=== PATIENT | male | born 2000 | race Caucasian/White ===

== ENCOUNTER 2021-09-16 16:00 | Emergency (ER) | payer OTHER ==
[~2021-09-16] VITALS: Ht 167.6 cm; Wt 51.7 kg
[2021-09-16 16:14] VITALS: BP 96/44
--- NOTE | 2021-09-16 16:26 | NUR ---
21 Y/O M BIB SELF C/O OF ABDOMINAL PAIN, NAUSEA/VOMITING 10/10 FOR 4DAYS. STATES THAT IT "FEELS LIKE AN ULCER". PT ALSO STATES THE BOTTOM OF HIS FEET FEELS LIKE PINS AND NEDDLES. PT TOOK TYLENOL AND MOTRIN TODAY. WITH NO RELEAVE. [facility] PMH: GASTRIC ULCER HX
--- NOTE | 2021-09-16 16:45 | NUR ---
DR MACK AT BEDSIDE.
[2021-09-16] MEDS ORDERED: METOCLOPRAMIDE 10 MG/2 ML INJ VIAL IVP ONE (16:50)
[2021-09-16] MEDS ORDERED: KETOROLAC 15 MG/ML VIAL IVP ONE (16:50)
[2021-09-16] MEDS ORDERED: NACL 0.9% 1,000 ML IV ONE (16:50)
[2021-09-16] MEDS ORDERED: diphenhydrAMINE 50 MG/ML VIAL IVP ONE (16:50)
--- NOTE | 2021-09-16 17:04 | NUR ---
[facility] AT BEDSIDE.
[2021-09-16 17:13] LABS: HEMOGLOBIN 14.5 g/dL (12.0-18.0); LYMPHOCYTES # (AUTO) 0.6 K/uL (2.0-11.5); MONOCYTES # (AUTO) 0.3 K/uL (0.8-1.0); NEUTROPHILS # (AUTO) 0.8 K/uL (1.8-7.7); NEUTROPHILS % (AUTO) 46.6 % (42.2-75.2); RED CELL DISTRIBUTION WIDTH 13.2 % (11.6-13.7)
[2021-09-16] MEDS ORDERED: HALOPERIDOL IM 5 MG/ML VIAL IM ONE (17:30)
[2021-09-16 17:33] LABS: ALBUMIN 3.7 g/dL (3.4-5.0); ANION GAP 11.8 (8-16); CARBON DIOXIDE 25.9 mmol/L (21-32); CREATININE 1.1 mg/dL (0.6-1.3); POTASSIUM 3.7 mmol/L (3.5-5.1); TOTAL BILIRUBIN 0.5 mg/dL (0.0-1.0)
--- NOTE | 2021-09-16 17:37 | NUR ---
Patient discharged with v/s stable. Written and verbal after care instructions given and explained. Patient verbalized understanding. Ambulatory with steady gait. All questions addressed prior to discharge. Advised to follow up with PMD.
--- NOTE | 2021-09-16 17:38 | NUR ---
The patient's care was reviewed and supervised by Lucila Zamarripa RN.
[2021-09-16 17:46] LABS: BASOPHILS % (AUTO) 0.8 % (0.0-2.0); EOSINOPHILS % (AUTO) 0.1 % (0.0-4.0); LYMPHOCYTES % (AUTO) 35.1 % (20.5-51.1); MEAN CORPUSCULAR HEMOGLOBIN 30 pg (27-31); MEAN CORPUSCULAR HGB CONC 34 g/dL (33-37); MEAN CORPUSCULAR VOLUME 87.4 fL (80-94); MONOCYTES % (AUTO) 17.4 % (1.7-9.3); PLATELET COUNT (AUTO) 177 K/uL (140-450); RED BLOOD CELL COUNT(AUTO) 4.91 MIL/uL (4.20-6.10)
[2021-09-16 17:48] LABS: WHITE BLOOD COUNT (AUTO) 1.8 K/uL (4.8-10.8)
== END 2021-09-16 17:38 | disposition home or self-care (01) ==
LOC: MED 16:00
DX: R10.84 Generalized abdominal pain (principal); R11.2 Nausea with vomiting, unspecified; R19.7 Diarrhea, unspecified; F12.90 Cannabis use, unspecified, uncomplicated; Z91.09 Other allergy status, other than to drugs and biological substances
CPT/HCPCS: 36415; 80053; 85025; 96361; 96374; 96375; 99284; J1200; J1885; J2765